=== PATIENT | male | born 1960 | race African-American/Black ===

== ENCOUNTER 2019-09-22 19:09 | Emergency (ER) | payer MEDICARE, MEDICAID ==
[~2019-09-22] VITALS: Ht 180.3 cm; Wt 95.5 kg
[~2019-09-22 19:09] MED LIST: MELO-107 PO; PERCT PO
[2019-09-22 19:10] VITALS: BP 166/93
[2019-09-22] MEDS ORDERED: TAMS-1 PO (19:19)
[2019-09-22 20:14] LABS: APPEARANCE,URINE CLEAR (CLEAR); BILIRUBIN,URINE NEGATIVE (NEGATIVE); GLUCOSE, URINE (UA) NEGATIVE (NEGATIVE); KETONES,URINE NEGATIVE (NEGATIVE); LEUKOCYTE ESTERASE ,URINE NEGATIVE (NEGATIVE); NITRATE,URINE NEGATIVE (NEGATIVE); OCCULT BLOOD,URINE MODERATE (NEGATIVE); PROTEIN,URINE TRACE (NEGATIVE); UROBILINOGEN,URINE 0.2 mg/dL (<=1.0)
[2019-09-22 20:21] LABS: BACTERIA,URINE None Seen /HPF (None Seen); SQUAMOUS EPITHELIAL CELL,UR Rare /LPF (None Seen)
== END 2019-09-22 20:30 | disposition left against medical advice (07) ==
LOC: EMS 19:10
DX: R10.9 Unspecified abdominal pain (principal); Z53.21 Procedure and treatment not carried out due to patient leaving prior to being seen by health care provider